=== PATIENT | female | born 1950 | race Caucasian/White ===

== ENCOUNTER → 2022-08-01 11:27 | Outpatient (CLI) | payer MEDICARE, OTHER, SELFPAY ==
[2022-08-01 13:02] LABS: Iron 79 ug/dL (37-170)
[2022-08-01 13:11] LABS: Total Iron Binding Capacity 305 ug/dL (265-497)
[2022-08-01 13:20] LABS: Ferritin 24 ng/mL (11-264)
[2022-08-01 13:51] LABS: Folate > 20.0 ng/mL (2.76-20.0); Vitamin B12 779 pg/mL (239-931)
[2022-08-02 18:13] LABS: Anti Gliadin IgG Ab 3 units (0-19); Gliadin Gluten IgA 7 units (0-19)
== END ==
PROVIDERS: Referring Provider Nurse Practitioner Family; Visit Provider Nurse Practitioner Family
DX: D64.9 Anemia, unspecified (principal); D80.3 Selective deficiency of immunoglobulin G [IgG] subclasses; D53.9 Nutritional anemia, unspecified; R53.83 Other fatigue
CPT/HCPCS: 36415; 82607; 82728; 82746; 83516; 83540; 83550

== ENCOUNTER 2022-08-03 16:26 | Emergency (ER) | payer MEDICARE, OTHER, SELFPAY ==
[2022-08-03 17:05] VITALS: BP 118/59; PULSE 82; RESP 17; TEMP 36.6; O2SAT 97; BMI 14.5
--- NOTE | 2022-08-03 18:32 | ED.LOWEXIN ---
HPI - Extremity Injury (Lower) General Chief Complaint: Extremity Injury, Lower Stated Complaint: Foot pain, Seeking toradol Time Seen by Provider: 08/03/22 18:24 Source: patient Mode of arrival: Ambulatory Limitations: no limitations History of Present Illness HPI Narrative: 71-year-old female who is here for evaluation of right foot pain. She was seen at an outside facility yesterday. Had x-rays performed. She was told that it was arthritis. I do not have this report or ED visit for my review. This report came from the patient. She was given a shot of Toradol. She states that Toradol did help her symptoms. She was also given a prescription for oxycodone. She says she is not filled the prescription for oxycodone. She also states she has a ring on her right ring finger that needs to be removed. She is asking for another shot of Toradol. Related Data Home Medications Medication Instructions Recorded Confirmed gabapentin 300 mg capsule 300 mg PO TID 08/03/22 08/03/22 trazodone 100 mg tablet 100 mg PO BEDTIME 08/03/22 08/03/22 Allergies Allergy/AdvReac Type Severity Reaction Status Date / Time No Known Drug Allergies Allergy Verified 08/03/22 17:16 Review of Systems Musculoskeletal Musculoskeletal: Reports system reviewed and no additional complaints, except as documented Integumentary/Breasts Skin/Breast: Reports system reviewed and no additional complaints, except as documented Neurologic Neurologic: Reports system reviewed and no additional complaints, except as documented Patient History Social History (Updated 08/03/22 @ 20:58 by Liam Galeana DO) lives independently: Yes Exam Initial Vital Signs Initial Vital Signs: Vital Signs Temperature 98 F 08/03/22 17:05 Pulse Rate 82 08/03/22 17:05 Respiratory Rate 17 08/03/22 17:05 Blood Pressure 118/59 L 08/03/22 17:05 Pulse Oximetry 97 08/03/22 17:05 Oxygen Delivery Method 08/03/22 17:05 Cardio Pulses: dorsalis pedis present on the right Skin Other: No redness over the toes or top of the right foot she does have findings consistent with fungal infection of her great toe nail and the nails the rest of the foot Neuro Sensory Exam: no sensory deficits noted Extrem Other: Tenderness to palpation over the 2nd 3rd 4th toes of the right foot. Patient also has some swelling of the PIP joint of the right ring finger which is causing some swelling around the ring of the ring finger. Course Orders Ordered: Discontinued Medications Ketorolac Tromethamine (Ketorolac 30 Mg/Ml Vial) 30 mg IM NOW ONE Stop: 08/03/22 18:33 Last Admin: 08/03/22 18:53 Dose: 30 mg Documented By: NEREIDA Vital Signs Vital signs: Vital Signs - 8 hr 08/03/22 17:05 Temperature 98 F Pulse Rate 82 Respiratory Rate 17 Blood Pressure 118/59 L Pulse Oximetry 97 Oxygen Delivery Method Room Air MDM - Extremity Injury (Lower) MDM Narrative Medical decision making narrative: No indication for repeat x-rays today. Her right foot is tender to palpation but there is no redness over the area. The patient is ambulatory. She was given a shot of Toradol. No indication for antibiotics. She stated that she needed pain medication. I told her that she was given a prescription for pain medication but she has not filled this medication. She states that she needed lower because it was only for 5 tablets. I told her that I would not prescribe any more medication. I was able to remove the ring from her right ring finger. I did have to cut the ring. It was placed in a specimen cup. A labeled was placed on the cup and was given directly to the patient. I informed her that she needed to contact her primary doctor for follow-up Discharge Plan Departure Patient Disposition: Home Clinical Impression: Arthritis Instructions: Arthritis (Alternative Therapy), DI for Arthritis Activity Restrictions/Additional Instructions: Recommend that you continue with your current medications. Contact your primary doctor for follow-up. Fill the prescriptions that were given to you at your prior emergency department visit Prescriptions: No Action trazodone 100 mg tablet 100 mg PO BEDTIME Label Comments: TAKE 2 TABLETS BY MOUTH DAILY AT BEDTIME gabapentin 300 mg capsule 300 mg PO TID Label Comments: TAKE 3 CAPSULES BY MOUTH THREE TIMES DAILY Visit Report Forms: Patient Portal/API
[2022-08-03] MEDS: KETOROLAC 30 MG/ML VIAL IM (18:53)
--- NOTE | 2022-08-03 19:08 | PC.NURSE ---
assessment by dr. giles. i gave pt her injection and she said was leaving. pt put her coat on and walked out, she did agree to take her paperwork.
== END 2022-08-03 19:09 | disposition home or self-care (01) ==
PROVIDERS: Emergency Provider Emergency Medicine
DX: M19.071 Primary osteoarthritis, right ankle and foot (principal)
CPT/HCPCS: 96372; 99283; J1885